=== PATIENT | female | born 1990 | race Caucasian/White ===

== ENCOUNTER 2020-05-26 11:30 | Outpatient (CLI) | payer OTHER | END 2020-05-26 23:59 | disposition home or self-care (01) | LOC: LAB.N 11:30 | PROVIDERS: ATTEND Family Medicine | DX: J01.90 Acute sinusitis, unspecified (principal); Z20.828 Contact with and (suspected) exposure to other viral communicable diseases ==

== ENCOUNTER 2020-09-23 03:06 | Emergency (ER) | payer OTHER ==
[2020-09-23] MEDS ORDERED: KETOROLAC 30 MG/ML VIAL IM STA (03:34)
[2020-09-23] MEDS ORDERED: ONDANSETRON ODT 4 MG TABLET TL STA (03:34)
[2020-09-23 04:01] LABS: HCG UR QUAL NEGATIVE
--- NOTE | 2020-09-23 04:14 | ED Physician Documentation ---
History of Present Illness - Stated complaint Stated Complaint: LRQ PX - Chief complaint Chief Complaint: Abd Pain - History obtained from History obtained from: Patient - Additonal information Additional information: 29-year-old woman with history of PCOS, currently menstruating with LMP starting today presents with sharp intermittent right lower quadrant pain waking her from sleep around midnight. Patient states that she normally gets bad cramps with her. And she did start her. Within the past 24 hours. She also endorses passage of one large blood clot from her vagina. She states that this is worse than her usual periods however and feels similar to when she had a cyst rupture in the past. She felt normal yesterday and denies fevers, urinary symptoms like dysuria, increased frequency, hematuria. Denies vaginal discharge. Past surgical history of tubal ligation. Review of Systems Ten Systems: 10 systems reviewed and negative Constitutional: denies: Fever GI: reports: Abdominal Pain, Nausea. denies: Vomiting, Diarrhea : reports: Vaginal bleeding. 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 : None HEENT: None Psych: None Musculoskeletal: None Derm: None - Past Surgical History Past Surgical History: Yes /FLAME CUTTING SUPERVISOR: Tubal ligation, Other - Present Medications Home Medications: Ambulatory Orders Medication Instructions Recorded Confirmed Ibuprofen [Motrin] 600 mg PO Q6H PRN #30 tab 09/23/20 Spironolactone [Aldactone] 100 mg PO DAILY 09/23/20 09/23/20 - Allergies Allergies/Adverse Reactions: Allergies Allergy/AdvReac Type Severity Reaction Status Date / Time doxycycline AdvReac Unknown Verified 09/23/20 03:19 Sulfa (Sulfonamide AdvReac Unknown Verified 09/23/20 03:19 Antibiotics) - Social History Does the pt smoke?: No Smoking Status: Never smoker Does the pt drink ETOH?: Yes Does the pt have substance abuse?: No - Immunizations Immunizations are current?: Yes - POLST Patient has POLST: No PD ED PE NORMAL - Vitals Vital signs reviewed: Yes - General General: Alert and oriented X 3, No acute distress, Well developed/nourished - HEENT HEENT: Atraumatic, PERRL, EOMI - Neck Neck: Supple, no meningeal sign - Cardiac Cardiac: RRR - Respiratory Respiratory: No respiratory distress, Clear bilaterally - Abdomen Abdomen: Non tender, Non distended, Other (RLQ discomfort to palpation) - Back Back: No CVA TTP - Derm Derm: Normal color - Extremities Extremities: No deformity - Neuro Neuro: Alert and oriented X 3 - Psych Psych: Normal mood, Normal affect Results - Vitals Vitals: Vital Signs - 24 hr 09/23/20 09/23/20 03:15 03:18 Temperature 36.5 C 36.5 C Heart Rate 84 81 Respiratory 17 18 Rate Blood Pressure 121/70 125/73 O2 Saturation 99 99 Oxygen O2 Source Room air - Labs Labs: Laboratory Tests 09/23/20 03:48 Urine HCG, Qual NEGATIVE PD MEDICAL DECISION MAKING - ED course ED course: 29-year-old woman with history of PCOS presents with sudden onset pain late this evening consistent with cyst rupture. Unlikely to be torsion given nontender on exam and without vomiting. Will obtain ultrasound to evaluate. Departure - Departure Disposition: 01 Home, Self Care Clinical Impression: Ruptured ovarian cyst Condition: Good Instructions: Cyst Ruptured Ovarian Tx Follow-Up: Carlee Garcia MD [Provider Admit Priv/Credential] - Prescriptions: Ibuprofen [Motrin] 600 mg PO Q6H PRN #30 tab PRN Reason: Pain Comments: You are seen in the emergency department for sudden onset right lower abdominal pain. It looks like you had a cyst that ruptured. You have good blood flow to both of your ovaries. Please return to emergency department if you experience any new or worsening symptoms or have other concerns. Follow-up with your OUTSIDE PRODUCTION INSPECTOR.
[2020-09-23 05:09] VITALS: BP 121/72
--- NOTE | 2020-09-23 10:40 | Ultrasound Report ---
PROCEDURE: Pelvic w/Transvag+Doppler Comp INDICATIONS: RLQ pain, sudden onset, hx PCOS TECHNIQUE: Real-time scanning was performed of the pelvic organs, with image documentation. Additional endovagi nal scanning was necessary due to incomplete visualization of the adnexal and endometrial structures by transabdominal scanning. COMPARISON: None. FINDINGS: No pathologic free abdominal or pelvic fluid. Small amount of physiologic pelvic free fluid noted in the cul-de-sac. Uterus: Uterus is normal in size at 6.7 x 4.5 x 3.1 cm. The endometrium measures 5 mm in combined t hickness. Uterine echotexture is heterogeneous. There are a few areas of heterogeneous, hypoechoic r egions within the myometrium. One measures approximately 1.1 x 0.9 x 1.0 cm. There is very minimal am ount of posterior acoustic shadowing. There are 2 less distinct areas of heterogeneous hypoechogenici ty within the myometrium with increase vascular flow near the endometrial/myometrial border at the an terior uterine body. Incidental nabothian cyst. No definite uterine fibroids identified. Ovaries: Right ovary measures 3.2 x 1.8 x 1.8 cm with ovarian volume of 5.4 mL. There are more than 12 follicles visualized. There is a subcentimeter irregular hyperechoic focus within the right ovary likely representing a collapsed cyst. Left ovary measures 3.2 x 2.3 x 2.8 cm with ovarian volume of 1 1 mL. There are greater than 12 follicles. Normal vascular waveforms are seen bilaterally. IMPRESSION: 1. Hypoechoic, heterogeneous foci within the myometrium possibly related to changes from multiple lindsay or uterine ablation's. The heterogeneously hypoechoic foci with an indistinct endometrial/myometrial border and increased vascularity may possibly represent adenomyosis. Consider further evaluation with pelvic MRI if clinically indicated. 2. No sonographic evidence for ovarian torsion. No significant discrepancy with initial interpretation by overnight radiologist. Reviewed by: Kirill Medina MD on 09/23/2020 10:38 AM PDT Approved by: Kirill Medina MD on 09/23/2020 10:38 AM PDT Station ID: [id number]
== END 2020-09-23 05:08 | disposition home or self-care (01) ==
LOC: ED 03:06
DX: N83.201 Unspecified ovarian cyst, right side (principal)
CPT/HCPCS: 76830; 76856; 81025; 93975; 96372; 99284; Q0162

== ENCOUNTER 2021-05-11 11:50 | Outpatient (CLI) | payer OTHER ==
[2021-05-11 22:03] LABS: BACTERIAL VAGINOSIS DNA POSITIVE (NEGATIVE); CANDIDA GLABRATA DNA NEGATIVE (NEGATIVE); CANDIDA GROUP DNA NEGATIVE (NEGATIVE); CANDIDA KRUSEI DNA NEGATIVE (NEGATIVE); TRICHOMONAS VAGINALIS DNA NEGATIVE (NEGATIVE)
== END 2021-05-11 23:59 | disposition home or self-care (01) ==
LOC: LAB.N 11:50
PROVIDERS: ATTEND Physician Assistant
DX: N89.8 Other specified noninflammatory disorders of vagina (principal); R51.9 Headache, unspecified; Z20.822 Contact with and (suspected) exposure to COVID-19
CPT/HCPCS: 87661; 87801

== ENCOUNTER 2021-07-01 08:00 | Outpatient (CLI) | payer OTHER | END 2021-07-01 23:59 | disposition home or self-care (01) | LOC: LAB.N 08:00 | PROVIDERS: ATTEND Physician Assistant | DX: U07.1 COVID-19 (principal) ==

== ENCOUNTER 2022-02-10 08:00 | Outpatient (CLI) | payer OTHER ==
--- NOTE | 2022-02-10 14:35 | XRAY Report ---
PROCEDURE: Wrist 3 View LT INDICATIONS: LEFT WRIST PAIN TECHNIQUE: 3 views of the wrist were acquired. COMPARISON: None FINDINGS: Bones: No fractures or dislocations. No suspicious bony lesions. Soft tissues: No suspicious soft tissue calcifications. IMPRESSION: Normal left wrist Reviewed by: Elmo Miller on 02/10/2022 2:34 PM PDT Approved by: Elmo Miller on 02/10/2022 2:34 PM PDT Station ID: [id number]
--- NOTE | 2022-02-10 14:36 | XRAY Report ---
PROCEDURE: Finger(s) RT INDICATIONS: FALL 1 WEEK AGO. TECHNIQUE: AP hand, 3 views of the right little finger(s) acquired. COMPARISON: None FINDINGS: Bones: No fractures or dislocations. No suspicious bony lesions. Soft tissues: No suspicious soft tissue calcifications. IMPRESSION: Normal right little finger Reviewed by: Elmo Miller on 02/10/2022 2:35 PM PDT Approved by: Elmo Miller on 02/10/2022 2:35 PM PDT Station ID: [id number]
== END 2022-02-10 23:59 | disposition home or self-care (01) ==
LOC: DI.N 08:00
PROVIDERS: ATTEND Registered Nurse
DX: M25.532 Pain in left wrist (principal); M79.644 Pain in right finger(s)